=== PATIENT | male | born 1960 | race Caucasian/White ===

== ENCOUNTER → 2018-04-11 | Outpatient (CLI) | payer OTHER ==
[~2018-04-11] MED LIST: BENA1TAB6 PO; GABA600T2 PO; MULT1TAB52 PO; NAPR-695 PO
--- NOTE | 2018-04-11 12:14 | PAIN ---
DATE OF SERVICE: 04/11/2018 INITIAL CONSULTATION FOR PAIN CLINIC CHIEF COMPLAINT: Right upper extremity pain. HISTORY OF PRESENT ILLNESS: This is a 57-year-old male who presents with history of pain since 12/2017, not as a result of any specific injury or accident that he is aware of. One day the pain was there, present in the base of the neck, right shoulder, right bicep, forearm into the fifth finger on the right side as well as in the posterior triceps and posterior forearm and the back of the hand. The patient reports some numbness, tingling, shooting, intermittent in intensity with tingling, radiating, aching pain. The patient has been treated with physical therapy, also on gabapentin, Aleve. Reports about 90% improvement with these modalities thus far. The pain is still there, but is much improved from where it was. He no longer has significant weakness in the right arm, does fatigue easily still with repetitive motions, but not like it was several months ago. The patient did have an MRI scan of the cervical spine showing C5-C6 disk narrowing with broad-based osteophyte disk complex present in the right paracentral to foraminal position, resulting in mild right neural foraminal encroachment, C6-C7 showing severe right neural foraminal encroachment and mild left neural foraminal encroachment with disk osteophyte complex as well, and C7-T1 shows a broad-based central disk protrusion without central stenosis. The patient rates his disability rate from 0-10, 10 being the worst, is a 1 with family and home responsibilities, 2 with recreation and 0 in all other categories. The patient reports the pain does not awake him from sleep at night, does not affect his bowel or bladder control, does not affect his ability to walk. He has tried prednisone, also naproxen, gabapentin. He is currently taking 300 mg 3 times a day, has taken that today, naproxen sodium as well, with good results and so far decrease in pain and better functionality. The patient continued to do physical therapy exercises, which he feels are helpful and he is doing it daily. The patient reports no symptoms on the left side. No loss of motor function, some fatigability once again with repetitive motions or reaching over his head with his right arm repetitively, otherwise doing fairly well. PAST MEDICAL HISTORY: Significant for hypertension, arthritis, hyperlipidemia. PREVIOUS SURGERY: Includes hernia repair in 2005 and a right knee scope in 1992. CURRENT MEDICATIONS: Include gabapentin, naproxen, multivitamins and benazepril. ALLERGIES: The patient has no known drug allergies. FAMILY HISTORY: Significant for cancer, arthritis, hypertension and hypercholesterolemia. SOCIAL HISTORY: The patient does not drink alcohol, does not smoke, does not use any illegal, illicit or recreational drugs. He is single. Lives locally in [place], [place] and is currently retired. REVIEW OF SYSTEMS: The patient's review of systems is positive for those items mentioned in history of present illness. All systems reviewed and otherwise negative. It is complete, full and well documented on the patient's chart. PHYSICAL EXAMINATION: VITAL SIGNS: The patient's blood pressure is 140/85, pulse 68, respirations 16, temperature 98.2 degrees Fahrenheit, height 6 feet, weight 219 pounds. GENERAL: The patient is awake, alert, oriented, appropriate, very pleasant demeanor. HEENT: Head shows normocephalic, atraumatic. Extraocular movements are intact and symmetrical. Oral cavity: Mucous membranes moist and pink. Dentition is intact. NECK: Shows anterior throat supple without palpable lymphadenopathy noted. Swallow reflex symmetrical. CHEST: Shows normal with inspection. Breath sounds clear to auscultation bilaterally. HEART: Shows S1, S2 clear. No murmurs auscultated. ABDOMEN: Soft, nontender, nondistended. No palpable organomegaly is noted. No rebound or guarding demonstrated. BACK: Shows spine grossly in the midline, normal-appearing cervical lordotic curvature and thoracic kyphotic curvature. Cervical paraspinous muscle shows symmetrical on inspection, with palpation shows some very mild tenderness in the inferior aspect of the cervical paraspinous musculature on the right side and into the superior medial and lateral trapezius, but without trigger points, without atrophy, hypertrophy or asymmetry. The patient has good rotational motion of the cervical spine, both laterally greater than 45 degrees, closer to 90 degrees as well as full extension, full forward flexion, only some minor discomfort in the right base of the neck with full extension, but not with forward flexion. EXTREMITIES: The patient's upper extremities show deep tendon reflexes at 2+ in the biceps and triceps tendons. 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 Peripheral pulses are 2+ radial distribution. No peripheral edema is noted. Upper extremities are warm and dry to touch, equal in color and appearance. Shoulder shrug is strong and intact without loss of strength on resistance, as is abduction of the shoulder to 90 degrees without loss of strength on resistance and without significant pain reported. SKIN: Shows warm and dry, good turgor. No edema. No sores, rashes or bruising. IMPRESSION: 1. This is a 57-year-old male with approximate 4-month history of increasing pain, base of the neck, right upper extremity in a radicular fashion. 2. MRI scan of cervical spine as noted. 3. Hypertension. 4. Arthritis. PLAN: Options were discussed with the patient including conservative medical management, physical therapy, interventional techniques and he would like to have most conservative course. We will maintain his physical therapy exercise at this time, continue with gabapentin and naproxen. The patient will give this more time and increase his activity as tolerated. If not significantly improved, we will have him follow up for potential cervical epidural steroid injection, but the patient is doing quite well, about 90% improvement when he was in December, was given more time and maintain his medication regimen currently. The patient will follow up at this time on an as needed basis. LOU BARRERA MD DR: ANT/adair JOB#: [id number] / [id number] YRN Mina MD
== END | disposition home or self-care (01) ==
LOC: PNCL 08:06
PROVIDERS: ATTEND Anesthesiology
DX: M79.621 Pain in right upper arm (principal); I10 Essential (primary) hypertension; M19.90 Unspecified osteoarthritis, unspecified site; E78.5 Hyperlipidemia, unspecified; Z82.61 Family history of arthritis; Z83.42 Family history of familial hypercholesterolemia; Z82.49 Family history of ischemic heart disease and other diseases of the circulatory system
CPT/HCPCS: G0463